=== PATIENT | male | born 1985 | race Two or more races ===

== ENCOUNTER 2024-03-21 10:54 | Emergency (ER) | payer OTHER ==
[~2024-03-21] VITALS: Ht 175.3 cm; Wt 61.2 kg
[2024-03-21] MEDS ORDERED: ACETAMINOPHEN 325 MG TABLET PO ONE (11:45)
== END 2024-03-21 11:43 | disposition home or self-care (01) ==
LOC: ER 10:55
DX: S09.8XXA Other specified injuries of head, initial encounter (principal); Y08.89XA Assault by other specified means, initial encounter; Y93.89 Activity, other specified; Y92.59 Other trade areas as the place of occurrence of the external cause; H92.02 Otalgia, left ear

== ENCOUNTER 2024-03-22 16:00 | Outpatient (CLI) | payer OTHER | END 2024-03-22 16:06 | disposition home or self-care (01) | LOC: TOM 16:00 | DX: H92.09 Otalgia, unspecified ear (principal) ==